=== PATIENT | female | born 1950 | race Caucasian/White ===

== ENCOUNTER 2023-01-16 00:02 | Inpatient (IN) | payer MEDICARE, OTHER, MEDICAID ==
[2023-01-16] MEDS ORDERED: Albuterol/Ipratropium 3.0-0.5 MG/3 ML Neb Soln NEB ONE (00:15)
[2023-01-16] MEDS ORDERED: Albuterol/Ipratropium 3.0-0.5 MG/3 ML Neb Soln ONE (00:16)
[2023-01-16] MEDS ORDERED: Sodium Chloride 0.9% 1,000 ML IV ONE (00:48)
[2023-01-16 01:02] LABS: CORONAVIRUS COVID-19 NAA NEGATIVE (NEGATIVE); RESPIRATORY SYNCYTIAL VIR NAA NEGATIVE (NEGATIVE)
[2023-01-16] MEDS ORDERED: cefTRIAXone 1 GM Vial IVPUSH ONE (01:22)
[2023-01-16] MEDS ORDERED: Azithromycin 500 MG in Sodium Chloride 0.9% 250 ML IV STA (01:22)
[2023-01-16] MEDS ORDERED: Morphine 4 MG/ML VIAL IVPUSH ONE (01:52)
[2023-01-16] MEDS ORDERED: Ondansetron 4 MG/2 ML SDV IVPUSH ONE (01:52)
[2023-01-16] MEDS ORDERED: Ondansetron 4 MG/2 ML SDV IV PRN (02:56)
[2023-01-16] MEDS ORDERED: Albuterol/Ipratropium 3.0-0.5 MG/3 ML Neb Soln NEB PRN (02:56)
[2023-01-16] MEDS ORDERED: Docusate Sodium 100 MG Cap PO PRN (02:56)
[2023-01-16] MEDS ORDERED: Ondansetron 4 MG Tab.DIS PO PRN (02:56)
[2023-01-16] MEDS ORDERED: Polyethylene Glycol 3350 Powder 17 GM Packet PO PRN (02:56)
[2023-01-16] MEDS ORDERED: Bisacodyl 5 MG Tab PO PRN (03:07)
[2023-01-16] MEDS ORDERED: traMADol 50 MG Tab PO PRN ×2 (03:07→03:19)
[2023-01-16] MEDS: Acetaminophen 325 MG Tab PO PRN ×2 (05:02→20:04)
[2023-01-16] MEDS ORDERED: Insuln Aspart Prot/Insulin Aspart 100 Units/ML 3 ML FlexPen SUBCUT SCH (08:00)
[2023-01-16] MEDS ORDERED: Meloxicam 7.5 MG Tab PO SCH (08:00)
[2023-01-16] MEDS ORDERED: Acetaminophen 500 MG Tab PO SCH (08:00)
[2023-01-16] MEDS ORDERED: BENAZEPRIL HCL 20 MG PO SCH (08:00)
[2023-01-16] MEDS: Sodium Chloride 0.9% 1,000 ML IV SCH ×2 (08:09→18:32)
[2023-01-16] MEDS: Lactobacillus Rhamnosus GG (Probiotic) Cap PO SCH ×2 (08:10→19:39)
[2023-01-16] MEDS: Gabapentin 100 MG Cap PO SCH ×3 (08:11→19:38)
[2023-01-16] MEDS: Lisinopril 20 MG Tab PO SCH (08:11)
[2023-01-16] MEDS: Hydrochlorothiazide 25 MG Tab PO SCH (08:12)
[2023-01-16] MEDS: Aspirin 81 MG Tab.EC PO SCH (08:13)
[2023-01-16] MEDS: Cholecalciferol (Vitamin D3) 25 MCG Tab PO SCH (08:13)
[2023-01-16] MEDS: Albuterol/Ipratropium 3.0-0.5 MG/3 ML Neb Soln NEB SCH ×4 (08:14→19:37)
[2023-01-16] MEDS ORDERED: Sodium Polystyrene Sulfonate 15 GM/60 ML Susp 60 ML Bot PO ONE (08:28)
[2023-01-16] MEDS: Insulin NPH HUM/REG Insulin HM 100 UNIT/ML 3 ML Vial SQ SCH ×2 (10:52→18:01)
[2023-01-16] MEDS: traMADol 50 MG Tab PO PRN (17:45)
[2023-01-16] MEDS: cefTRIAXone 1 GM Vial IVPUSH SCH (19:28)
[2023-01-16] MEDS: Azithromycin 500 MG in Sodium Chloride 0.9% 250 ML IV SCH (19:32)
[2023-01-16] MEDS: Enoxaparin 30 MG/0.3 ML Syringe SUBCUT SCH (19:35)
[2023-01-16] MEDS: atorvaSTATin 10 MG Tab PO SCH (19:37)
[2023-01-16] MEDS: Pramipexole 0.5 MG Tab PO SCH (19:37)
[2023-01-16] MEDS: amLODIPine 2.5 MG Tab PO SCH (19:45)
[2023-01-17] MEDS: Sodium Chloride 0.9% 1,000 ML IV SCH ×3 (02:15→19:32)
[2023-01-17] MEDS: Albuterol/Ipratropium 3.0-0.5 MG/3 ML Neb Soln NEB SCH ×4 (07:41→19:26)
[2023-01-17] MEDS: Cholecalciferol (Vitamin D3) 25 MCG Tab PO SCH (07:49)
[2023-01-17] MEDS: Aspirin 81 MG Tab.EC PO SCH (07:49)
[2023-01-17] MEDS: Lactobacillus Rhamnosus GG (Probiotic) Cap PO SCH ×2 (07:49→19:25)
[2023-01-17] MEDS: Gabapentin 100 MG Cap PO SCH ×3 (07:49→19:24)
[2023-01-17] MEDS: Hydrochlorothiazide 25 MG Tab PO SCH (07:49)
[2023-01-17] MEDS: traMADol 50 MG Tab PO PRN (07:50)
[2023-01-17] MEDS: Lisinopril 20 MG Tab PO SCH (07:53)
[2023-01-17] MEDS: Insulin NPH HUM/REG Insulin HM 100 UNIT/ML 3 ML Vial SQ SCH ×2 (08:16→17:52)
[2023-01-17] MEDS ORDERED: Furosemide 40 MG/4 ML VIAL IVPUSH ONE (09:40)
[2023-01-17] MEDS ORDERED: Sodium Polystyrene Sulfonate 15 GM/60 ML Susp 60 ML Bot PO ONE (09:41)
[2023-01-17] MEDS ORDERED: Dextrose 10% in Water 500 ML IV SCH (10:15)
[2023-01-17] MEDS ORDERED: Insulin Regular, Human 100 Units/ML 3 ML Vial IVPUSH ONE (10:15)
[2023-01-17] MEDS ORDERED: 50% Dextrose in Water 50 ML Syringe IVPUSH ONE (10:15)
[2023-01-17] MEDS: Pramipexole 0.5 MG Tab PO SCH (19:25)
[2023-01-17] MEDS: atorvaSTATin 10 MG Tab PO SCH (19:26)
[2023-01-17] MEDS: Enoxaparin 30 MG/0.3 ML Syringe SUBCUT SCH (19:27)
[2023-01-17] MEDS: amLODIPine 2.5 MG Tab PO SCH (19:27)
[2023-01-17] MEDS: Azithromycin 500 MG in Sodium Chloride 0.9% 250 ML IV SCH (19:28)
[2023-01-17] MEDS: cefTRIAXone 1 GM Vial IVPUSH SCH (19:28)
[2023-01-18] MEDS: Albuterol/Ipratropium 3.0-0.5 MG/3 ML Neb Soln NEB SCH ×4 (07:49→20:03)
[2023-01-18] MEDS: Sodium Chloride 0.9% 1,000 ML IV SCH (09:11)
[2023-01-18] MEDS: Insulin NPH HUM/REG Insulin HM 100 UNIT/ML 3 ML Vial SQ SCH ×2 (10:12→17:38)
[2023-01-18] MEDS: Gabapentin 100 MG Cap PO SCH ×3 (10:13→20:03)
[2023-01-18] MEDS: Cholecalciferol (Vitamin D3) 25 MCG Tab PO SCH (10:13)
[2023-01-18] MEDS: Aspirin 81 MG Tab.EC PO SCH (10:13)
[2023-01-18] MEDS: Lactobacillus Rhamnosus GG (Probiotic) Cap PO SCH ×2 (10:13→20:03)
[2023-01-18] MEDS: Hydrochlorothiazide 25 MG Tab PO SCH (10:13)
[2023-01-18] MEDS: Azithromycin 500 MG in Sodium Chloride 0.9% 250 ML IV SCH (19:57)
[2023-01-18] MEDS: cefTRIAXone 1 GM Vial IVPUSH SCH (19:58)
[2023-01-18] MEDS: Enoxaparin 30 MG/0.3 ML Syringe SUBCUT SCH (20:01)
[2023-01-18] MEDS: atorvaSTATin 10 MG Tab PO SCH (20:02)
[2023-01-18] MEDS: amLODIPine 2.5 MG Tab PO SCH (20:03)
[2023-01-18] MEDS: Pramipexole 0.5 MG Tab PO SCH (20:03)
[2023-01-19] MEDS: Sodium Chloride 0.9% 1,000 ML IV SCH (00:40)
[2023-01-19] MEDS: traMADol 50 MG Tab PO PRN (03:38)
[2023-01-19] MEDS: Acetaminophen 325 MG Tab PO PRN (05:53)
[2023-01-19] MEDS: Albuterol/Ipratropium 3.0-0.5 MG/3 ML Neb Soln NEB SCH ×4 (08:03→20:46)
[2023-01-19] MEDS: Lactobacillus Rhamnosus GG (Probiotic) Cap PO SCH ×2 (08:16→20:40)
[2023-01-19] MEDS: Aspirin 81 MG Tab.EC PO SCH (08:17)
[2023-01-19] MEDS: Hydrochlorothiazide 25 MG Tab PO SCH (08:17)
[2023-01-19] MEDS: Cholecalciferol (Vitamin D3) 25 MCG Tab PO SCH (08:18)
[2023-01-19] MEDS: Gabapentin 100 MG Cap PO SCH ×3 (08:20→20:38)
[2023-01-19] MEDS: Insulin NPH HUM/REG Insulin HM 100 UNIT/ML 3 ML Vial SQ SCH ×2 (08:23→17:16)
[2023-01-19] MEDS ORDERED: methylPREDNISolone Sodium Succinate 125 MG/2 ML SDV IVPUSH ONE (09:08)
[2023-01-19] MEDS ORDERED: Furosemide 20 MG/2 ML VIAL IVPUSH ONE ×2 (10:50→11:57)
[2023-01-19] MEDS ORDERED: SEMAGLUTIDE 2 MG/1.5 ML SQ ONE (11:15)
[2023-01-19] MEDS: guaiFENesin 200 MG Tab PO SCH ×2 (16:11→20:37)
[2023-01-19] MEDS: Enoxaparin 30 MG/0.3 ML Syringe SUBCUT SCH (20:37)
[2023-01-19] MEDS: Azithromycin 500 MG in Sodium Chloride 0.9% 250 ML IV SCH (20:37)
[2023-01-19] MEDS: Pramipexole 0.5 MG Tab PO SCH (20:39)
[2023-01-19] MEDS: atorvaSTATin 10 MG Tab PO SCH (20:39)
[2023-01-19] MEDS: amLODIPine 2.5 MG Tab PO SCH (20:46)
[2023-01-19] MEDS: cefTRIAXone 1 GM Vial IVPUSH SCH (20:47)
[2023-01-19] MEDS ORDERED: Insulin Regular, Human 100 Units/ML 3 ML Vial SUBCUT ONE (21:40)
[2023-01-20] MEDS: Aspirin 81 MG Tab.EC PO SCH (07:38)
[2023-01-20] MEDS: Hydrochlorothiazide 25 MG Tab PO SCH (07:38)
[2023-01-20] MEDS: Albuterol/Ipratropium 3.0-0.5 MG/3 ML Neb Soln NEB SCH (07:38)
[2023-01-20] MEDS: guaiFENesin 200 MG Tab PO SCH (07:38)
[2023-01-20] MEDS: Cholecalciferol (Vitamin D3) 25 MCG Tab PO SCH (07:39)
[2023-01-20] MEDS: Lactobacillus Rhamnosus GG (Probiotic) Cap PO SCH (07:39)
[2023-01-20] MEDS: Gabapentin 100 MG Cap PO SCH (07:39)
[2023-01-20] MEDS: Insulin NPH HUM/REG Insulin HM 100 UNIT/ML 3 ML Vial SQ SCH (08:05)
== END 2023-01-20 11:41 | disposition home or self-care (01) | DRG 682 ==
LOC: CC.ED 00:02 → CC.MS 02:30 → UNDOADMIN 02:30 → CC.MS 02:47
PROVIDERS: ADMIT Nurse Practitioner Family; ATTEND Nurse Practitioner Family
DX: N17.9 Acute kidney failure, unspecified (principal); J18.9 Pneumonia, unspecified organism; J44.0 Chronic obstructive pulmonary disease with (acute) lower respiratory infection; Z68.44 Body mass index [BMI] 60.0-69.9, adult; J44.1 Chronic obstructive pulmonary disease with (acute) exacerbation; E66.01 Morbid (severe) obesity due to excess calories; Z20.822 Contact with and (suspected) exposure to COVID-19; E78.5 Hyperlipidemia, unspecified; E11.69 Type 2 diabetes mellitus with other specified complication; E87.5 Hyperkalemia; Z91.018 Allergy to other foods; Z79.82 Long term (current) use of aspirin; Z79.4 Long term (current) use of insulin; Z79.899 Other long term (current) drug therapy
CPT/HCPCS: 0241U; 36415; 51702; 71045; 76770; 80048; 80053; 81001; 82947; 85025; 87040; 87070; 87086; 87205; 93005; 93010; 94640; 96374; 97110-GP; 97161-GP; 99223; 99232; 99233; 99238; 99285-25; A9270-GY; C1758; J0456; J0696; J1650; J1815-GY; J1940; J2270; J2405; J2930; J3490; J7030; J7050; J7620-GY

== ENCOUNTER 2024-12-16 08:51 | Inpatient (IN) | payer MEDICARE, OTHER, MEDICAID ==
[2024-12-16] MEDS ORDERED: Sodium Chloride 0.9% 10 ML Syringe FLUSH PRN (08:58)
[2024-12-16] MEDS: Albuterol/Ipratropium 3.0-0.5 MG/3 ML Neb Soln NEB PRN (09:02)
[2024-12-16 09:27] LABS: BASOPHILS ABSOLUTE AUTO 0.02 10^3/uL (0.00-0.50); BASOPHILS PERCENT AUTO 0.1 % (0-1); EOSINOPHILS ABSOLUTE AUTO 0.32 10^3/uL (0.00-1.50); EOSINOPHILS PERCENT AUTO 2.3 % (0-6); HEMATOCRIT 38.5 % (37.0-47.0); HEMOGLOBIN 11.4 g/dL (12.0-16.0); IMMATURE GRAN ABSOLUTE AUTO 0.07 10^3/uL (0.00-0.49); IMMATURE GRAN PERCENT AUTO 0.5 % (0.0-4.9); LYMPHOCYTES ABSOLUTE AUTO 0.64 10^3/uL (0.60-5.00); LYMPHOCYTES PERCENT AUTO 4.6 % (24-44); MEAN CORPUSCULAR HEMOGLOBIN 24.6 pg (27.0-32.0); MEAN CORPUSCULAR HGB CONC 29.6 g/dL (32.0-36.0); MEAN CORPUSCULAR VOLUME 83.2 fL (83.0-97.0); MONOCYTES ABSOLUTE AUTO 0.68 10^3/uL (0.00-1.50); MONOCYTES PERCENT AUTO 4.9 % (0-10); NEUTROPHILS ABSOLUTE AUTO 12.18 x10^3/uL (1.80-8.00); NEUTROPHILS PERCENT AUTO 87.6 % (41-71); PLATELET COUNT,PLT 248 10^3/uL (150-400); RED BLOOD CELL COUNT 4.63 x10^6/uL (4.00-5.50); WHITE BLOOD CELL COUNT,WBC 13.9 10^3/uL (4.0-11.0)
[2024-12-16 09:43] LABS: LACTIC ACID 1.8 mmol/L (0.4-2.0)
[2024-12-16 09:48] LABS: ALBUMIN 2.8 g/dL (3.4-5.0); C-REACTIVE PROTEIN 6.43 mg/dL (<=0.50); CALCIUM 9.4 mg/dL (8.4-10.1); CREATININE 1.5 mg/dL (0.6-1.0); EST CRCL DRUG DOSING (CG) 29.61 mL/min; POTASSIUM,K 4.7 mEq/L (3.5-5.0); PROTEIN TOTAL,TP 7.8 g/dL (6.4-8.2)
[2024-12-16 10:56] LABS: CORONAVIRUS COVID-19 NAA NEGATIVE (NEGATIVE); INFLUENZA A NAA NEGATIVE (NEGATIVE); INFLUENZA B NAA NEGATIVE (NEGATIVE)
[2024-12-16] MEDS: cefTRIAXone 1 GM Vial IVPUSH ONE (11:11)
[2024-12-16] MEDS: Furosemide 40 MG/4 ML VIAL IVPUSH ONE (11:11)
[2024-12-16] MEDS ORDERED: guaiFENesin 100 MG/5 ML Soln 5 ML UD Cup PO PRN (11:20)
[2024-12-16] MEDS ORDERED: Ondansetron 4 MG/2 ML SDV IV PRN (11:54)
[2024-12-16] MEDS ORDERED: Acetaminophen 650 MG Supp RECTAL PRN (11:54)
[2024-12-16] MEDS ORDERED: Ondansetron 4 MG Tab.DIS PO PRN (11:54)
[2024-12-16] MEDS: Azithromycin 500 MG in Sodium Chloride 0.9% 250 ML IV SCH (13:20)
[2024-12-16] MEDS: Albuterol/Ipratropium 3.0-0.5 MG/3 ML Neb Soln NEB SCH (13:20)
[2024-12-16] MEDS ORDERED: Albuterol 0.083% 2.5 MG/3 ML Neb Soln INH PRN (13:46)
[2024-12-16] MEDS: Gabapentin 100 MG Cap PO SCH ×2 (14:30→19:44)
[2024-12-16] MEDS: Acetaminophen 325 MG Tab PO SCH (14:30)
[2024-12-16] MEDS: Hypromellose 0.3% Ophth Soln 15 ML Bottle EYEBOTH SCH (14:30)
[2024-12-16] MEDS: Menthol/Zinc Oxide Ointment 113 GM Tube TOP SCH (15:36)
[2024-12-16] MEDS ORDERED: Non-Formulary Medication 1 Each (Insuln Asp Prot/Insulin Aspart [Novolog Mix 70-30] 100 UN SQ SCH (17:00)
[2024-12-16] MEDS: Insulin NPH/Insulin Regular,Human 70-30 100 Units/ML 10 ML Vial SUBCUT SCH (18:07)
[2024-12-16] MEDS: Pramipexole 0.5 MG Tab PO SCH (19:43)
[2024-12-16] MEDS: atorvaSTATin 10 MG Tab PO SCH (19:44)
[2024-12-16] MEDS: Apixaban 5 MG Tab PO SCH (19:44)
[2024-12-16] MEDS: Gabapentin 300 MG Cap PO SCH (19:44)
[2024-12-16] MEDS: Nystatin Topical Powder 15 GM Bottle TOP SCH (20:02)
[2024-12-17] MEDS: Pantoprazole 40 MG Tab.CR PO SCH (06:53)
[2024-12-17 07:46] LABS: BASOPHILS ABSOLUTE AUTO 0.02 10^3/uL (0.00-0.50); BASOPHILS PERCENT AUTO 0.2 % (0-1); EOSINOPHILS ABSOLUTE AUTO 0.47 10^3/uL (0.00-1.50); EOSINOPHILS PERCENT AUTO 5.7 % (0-6); HEMATOCRIT 32.2 % (37.0-47.0); HEMOGLOBIN 9.6 g/dL (12.0-16.0); IMMATURE GRAN ABSOLUTE AUTO 0.05 10^3/uL (0.00-0.49); IMMATURE GRAN PERCENT AUTO 0.6 % (0.0-4.9); LYMPHOCYTES ABSOLUTE AUTO 1.16 10^3/uL (0.60-5.00); MEAN CORPUSCULAR HEMOGLOBIN 25.1 pg (27.0-32.0); MEAN CORPUSCULAR HGB CONC 29.8 g/dL (32.0-36.0); MEAN CORPUSCULAR VOLUME 84.1 fL (83.0-97.0); MONOCYTES ABSOLUTE AUTO 0.78 10^3/uL (0.00-1.50); MONOCYTES PERCENT AUTO 9.4 % (0-10); NEUTROPHILS ABSOLUTE AUTO 5.81 x10^3/uL (1.80-8.00); NEUTROPHILS PERCENT AUTO 70.1 % (41-71); PLATELET COUNT,PLT 230 10^3/uL (150-400); RED BLOOD CELL COUNT 3.83 x10^6/uL (4.00-5.50); WHITE BLOOD CELL COUNT,WBC 8.3 10^3/uL (4.0-11.0)
[2024-12-17] MEDS: Meloxicam 7.5 MG Tab PO SCH (07:47)
[2024-12-17] MEDS: Cholecalciferol (Vitamin D3) 25 MCG Tab PO SCH (07:47)
[2024-12-17] MEDS: Torsemide 20 MG Tab PO SCH (07:48)
[2024-12-17] MEDS: Lactobacillus Rhamnosus GG (Probiotic) Cap PO SCH (07:48)
[2024-12-17] MEDS: Docusate Sodium 100 MG Cap PO SCH (07:48)
[2024-12-17] MEDS: amLODIPine 10 MG Tab PO SCH (07:48)
[2024-12-17] MEDS ORDERED: [UNRECOGNIZED DRUG - OTHER] SQ SCH (08:00)
[2024-12-17] MEDS ORDERED: INSULIN ASPART PROT SQ SCH (08:00)
[2024-12-17] MEDS ORDERED: INSULN ASP SQ SCH (08:00)
[2024-12-17 08:03] LABS: ALBUMIN 2.4 g/dL (3.4-5.0); BILIRUBIN TOTAL 0.6 mg/dL (0.0-1.0); C-REACTIVE PROTEIN 14.03 mg/dL (<=0.50); CALCIUM 8.5 mg/dL (8.4-10.1); CREATININE 1.7 mg/dL (0.6-1.0); EST CRCL DRUG DOSING (CG) 26.12 mL/min; POTASSIUM,K 4.2 mEq/L (3.5-5.0)
[2024-12-17] MEDS: Insulin NPH/Insulin Regular,Human 70-30 100 Units/ML 10 ML Vial SUBCUT SCH (08:26)
[2024-12-17] MEDS ORDERED: Nystatin Topical Powder 15 GM Bottle TOP PRN (09:27)
[2024-12-17] MEDS: cefTRIAXone 1 GM Vial IVPUSH SCH (11:41)
[2024-12-17] MEDS: Menthol/Zinc Oxide Ointment 113 GM Tube TOP PRN (20:00)
[2024-12-18] MEDS: fentaNYL 50 MCG/HR Transdermal Patch TRDERM SCH (07:54)
[2024-12-18 08:04] LABS: BASOPHILS ABSOLUTE AUTO 0.05 10^3/uL (0.00-0.50); BASOPHILS PERCENT AUTO 0.6 % (0-1); EOSINOPHILS ABSOLUTE AUTO 0.74 10^3/uL (0.00-1.50); EOSINOPHILS PERCENT AUTO 9.3 % (0-6); HEMATOCRIT 32.3 % (37.0-47.0); HEMOGLOBIN 9.6 g/dL (12.0-16.0); IMMATURE GRAN ABSOLUTE AUTO 0.03 10^3/uL (0.00-0.49); IMMATURE GRAN PERCENT AUTO 0.4 % (0.0-4.9); LYMPHOCYTES ABSOLUTE AUTO 1.19 10^3/uL (0.60-5.00); MEAN CORPUSCULAR HEMOGLOBIN 25.1 pg (27.0-32.0); MEAN CORPUSCULAR HGB CONC 29.7 g/dL (32.0-36.0); MEAN CORPUSCULAR VOLUME 84.6 fL (83.0-97.0); MONOCYTES ABSOLUTE AUTO 0.64 10^3/uL (0.00-1.50); MONOCYTES PERCENT AUTO 8.1 % (0-10); NEUTROPHILS ABSOLUTE AUTO 5.29 x10^3/uL (1.80-8.00); NEUTROPHILS PERCENT AUTO 66.6 % (41-71); PLATELET COUNT,PLT 220 10^3/uL (150-400); RED BLOOD CELL COUNT 3.82 x10^6/uL (4.00-5.50); WHITE BLOOD CELL COUNT,WBC 7.9 10^3/uL (4.0-11.0)
[2024-12-18 08:19] LABS: ALBUMIN 2.4 g/dL (3.4-5.0); BILIRUBIN TOTAL 0.4 mg/dL (0.0-1.0); C-REACTIVE PROTEIN 10.63 mg/dL (<=0.50); CALCIUM 8.6 mg/dL (8.4-10.1); CREATININE 1.8 mg/dL (0.6-1.0); EST CRCL DRUG DOSING (CG) 24.67 mL/min; POTASSIUM,K 4.2 mEq/L (3.5-5.0); PROTEIN TOTAL,TP 7.1 g/dL (6.4-8.2)
[2024-12-18] MEDS: Sodium Chloride 0.9% 500 ML IV SCH (18:31)
[2024-12-19 08:00] LABS: ALBUMIN 2.6 g/dL (3.4-5.0); BASOPHILS ABSOLUTE AUTO 0.04 10^3/uL (0.00-0.50); BASOPHILS PERCENT AUTO 0.4 % (0-1); BILIRUBIN TOTAL 0.4 mg/dL (0.0-1.0); C-REACTIVE PROTEIN 7.76 mg/dL (<=0.50); CALCIUM 8.6 mg/dL (8.4-10.1); CREATININE 1.7 mg/dL (0.6-1.0); EOSINOPHILS ABSOLUTE AUTO 0.79 10^3/uL (0.00-1.50); EOSINOPHILS PERCENT AUTO 8.7 % (0-6); EST CRCL DRUG DOSING (CG) 26.12 mL/min; HEMATOCRIT 32.7 % (37.0-47.0); HEMOGLOBIN 9.7 g/dL (12.0-16.0); IMMATURE GRAN ABSOLUTE AUTO 0.03 10^3/uL (0.00-0.49); IMMATURE GRAN PERCENT AUTO 0.3 % (0.0-4.9); LYMPHOCYTES PERCENT AUTO 12.2 % (24-44); MEAN CORPUSCULAR HEMOGLOBIN 24.9 pg (27.0-32.0); MEAN CORPUSCULAR HGB CONC 29.7 g/dL (32.0-36.0); MEAN CORPUSCULAR VOLUME 84.1 fL (83.0-97.0); MONOCYTES ABSOLUTE AUTO 0.62 10^3/uL (0.00-1.50); MONOCYTES PERCENT AUTO 6.9 % (0-10); NEUTROPHILS ABSOLUTE AUTO 6.45 x10^3/uL (1.80-8.00); NEUTROPHILS PERCENT AUTO 71.5 % (41-71); PLATELET COUNT,PLT 257 10^3/uL (150-400); POTASSIUM,K 4.2 mEq/L (3.5-5.0); PROTEIN TOTAL,TP 7.5 g/dL (6.4-8.2); RED BLOOD CELL COUNT 3.89 x10^6/uL (4.00-5.50)
== END 2024-12-19 14:45 | disposition home or self-care (01) | DRG 194 ==
LOC: SUPCPDRO 08:51 → CC.ED 08:51 → CC.MS 11:09
PROVIDERS: ADMIT Nurse Practitioner Family; ATTEND Nurse Practitioner Family
DX: J18.9 Pneumonia, unspecified organism (principal); J44.0 Chronic obstructive pulmonary disease with (acute) lower respiratory infection; I50.9 Heart failure, unspecified; J44.9 Chronic obstructive pulmonary disease, unspecified; H91.90 Unspecified hearing loss, unspecified ear; E78.00 Pure hypercholesterolemia, unspecified; M19.90 Unspecified osteoarthritis, unspecified site; M81.0 Age-related osteoporosis without current pathological fracture; E11.9 Type 2 diabetes mellitus without complications; Z88.8 Allergy status to other drugs, medicaments and biological substances; Z91.018 Allergy to other foods; Z79.899 Other long term (current) drug therapy; Z79.4 Long term (current) use of insulin; Z79.02 Long term (current) use of antithrombotics/antiplatelets; Z79.1 Long term (current) use of non-steroidal anti-inflammatories (NSAID); Z79.51 Long term (current) use of inhaled steroids; Z79.01 Long term (current) use of anticoagulants
CPT/HCPCS: 0240U; 36415; 71045; 80053; 82947; 83605; 83880; 85025; 86140; 87040; 87070; 87205; 87428-QW; 93306; 94640; 97161-GP; 99223; 99232; 99233; 99238; 99285; A9270-GY; J0456; J0696; J1815-GY; J1940; J7040; J7050; J7620-GY

== ENCOUNTER 2025-01-15 09:48 | Emergency (ER) | payer MEDICARE, OTHER, MEDICAID ==
[2025-01-15 10:01] LABS: BASOPHILS ABSOLUTE AUTO 0.03 10^3/uL (0.00-0.50); BASOPHILS PERCENT AUTO 0.4 % (0-1); EOSINOPHILS ABSOLUTE AUTO 0.24 10^3/uL (0.00-1.50); EOSINOPHILS PERCENT AUTO 2.9 % (0-6); HEMATOCRIT 34.4 % (37.0-47.0); HEMOGLOBIN 9.9 g/dL (12.0-16.0); IMMATURE GRAN ABSOLUTE AUTO 0.05 10^3/uL (0.00-0.49); IMMATURE GRAN PERCENT AUTO 0.6 % (0.0-4.9); LYMPHOCYTES ABSOLUTE AUTO 1.28 10^3/uL (0.60-5.00); LYMPHOCYTES PERCENT AUTO 15.6 % (24-44); MEAN CORPUSCULAR HEMOGLOBIN 24.4 pg (27.0-32.0); MEAN CORPUSCULAR HGB CONC 28.8 g/dL (32.0-36.0); MEAN CORPUSCULAR VOLUME 84.7 fL (83.0-97.0); MONOCYTES ABSOLUTE AUTO 0.76 10^3/uL (0.00-1.50); MONOCYTES PERCENT AUTO 9.3 % (0-10); NEUTROPHILS ABSOLUTE AUTO 5.83 x10^3/uL (1.80-8.00); NEUTROPHILS PERCENT AUTO 71.2 % (41-71); PLATELET COUNT,PLT 228 10^3/uL (150-400); RED BLOOD CELL COUNT 4.06 x10^6/uL (4.00-5.50); WHITE BLOOD CELL COUNT,WBC 8.2 10^3/uL (4.0-11.0)
[2025-01-15 10:27] LABS: ALBUMIN 3.2 g/dL (3.4-5.0); BILIRUBIN TOTAL 0.6 mg/dL (0.0-1.0); C-REACTIVE PROTEIN 2.6 mg/dL (<=0.50); CALCIUM 9.8 mg/dL (8.4-10.1); CREATININE 1.8 mg/dL (0.6-1.0); EST CRCL DRUG DOSING (CG) 24.67 mL/min; POTASSIUM,K 4.6 mEq/L (3.5-5.0); PROTEIN TOTAL,TP 8.1 g/dL (6.4-8.2)
== END 2025-01-15 11:38 | disposition home or self-care (01) ==
LOC: CC.ED 09:48
DX: I11.0 Hypertensive heart disease with heart failure (principal); I50.9 Heart failure, unspecified; E11.9 Type 2 diabetes mellitus without complications; E78.00 Pure hypercholesterolemia, unspecified; J44.9 Chronic obstructive pulmonary disease, unspecified; Z91.018 Allergy to other foods; Z91.09 Other allergy status, other than to drugs and biological substances; Z79.899 Other long term (current) drug therapy; Z79.4 Long term (current) use of insulin; Z79.51 Long term (current) use of inhaled steroids; Z79.01 Long term (current) use of anticoagulants
CPT/HCPCS: 36415; 71045; 80053; 83880; 85025; 86140; 99285